=== PATIENT | male | born 1940 | race Caucasian/White ===

== ENCOUNTER → 2017-07-30 08:25 | Outpatient (CLI) | payer MEDICARE, SELFPAY ==
--- NOTE | 2017-07-30 08:29 | MR_ITS ---
MR lumbar spine wo con, MR 3-d myelogram/MRCP HISTORY: Low back pain X years. Last few months PT has bilateral leg pain, RT leg numbness. LT foot numbness, and also states stomach pain. ITS.REASON: LUMBAGO WITH SCIATICA, RIGHT SIDE ORDERING PHYSICIAN: Megan Messina PATIENT AGE: 77 years Comparison: CT 12/23/14, X-RAY 09/12/11 TECHNIQUE: Standard multiplanar multiecho sequences are performed without contrast. 3-D MIP and myelographic images are also rendered and reviewed FINDINGS: There is normal alignment. The spinal cord ends at the T11-T12 level. T12-L1 and L1-L2 are unremarkable. L2-L3: Minimal facet hypertrophic change. L3-L4: Moderate facet and ligamentum flavum hypertrophy causing mild bilateral lateral recess narrowing and minimal foraminal narrowing. There is minimal anterolisthesis of L3 of 2 mm and minimal bulging disc There has been prior fusion posteriorly at L4-L5 and S1 with interpedicular screws and disc spacers at L4-5 and L5-S1 extensive artifact at these levels making interpretation of the L4-L5 and L5 levels unreliable. Prominent hypertrophic changes are present at these levels as demonstrated better by previous CT scan of 12/23/2014 IMPRESSION: 1. Postsurgical changes at L4-5 and L5-S1. Prior posterior fusion with prominent hypertrophic changes and significant artifact. 2. Facet and ligamentum flavum hypertrophy at L3-L4 with mild bilateral lateral recess and foraminal narrowing and minimal bulging disc. 3. No canal stenosis or tissues herniated disc evident Incidental note made of a right or 0.9 cm right renal cyst IMPRESSION:
== END ==
PROVIDERS: Family Provider Internal Medicine Adolescent Medicine; PCP Internal Medicine Adolescent Medicine; Visit Provider Nurse Practitioner Family
DX: M54.41 Lumbago with sciatica, right side (principal)
CPT/HCPCS: 72148; 76376

== ENCOUNTER → 2017-08-12 09:23 | Outpatient (POV) | payer MEDICARE, SELFPAY ==
[2017-08-12 09:36] VITALS: BP 158/92; PULSE 72; RESP 18; O2SAT 98
--- NOTE | 2017-08-12 10:05 | HMH.PMCON ---
Assessment and Plan (1) Postlaminectomy syndrome Current visit: Yes Status: Chronic Category: Medical Code(s): M96.1 - Postlaminectomy syndrome, not elsewhere classified (2) Degenerative disc disease Current visit: Yes Status: Chronic Qualifiers: Spinal region: lumbar Qualified Code(s): M51.36 - Other intervertebral disc degeneration, lumbar region Category: Medical (3) Lumbar radiculopathy Current visit: Yes Status: Chronic Category: Medical Code(s): M54.16 - Radiculopathy, lumbar region - Assessment and plan all Dx Assessment and Plan for all problems:: We will schedule an L4-L5 lumbar epidural steroid injection for the patient. It is not on any anticoagulation therapy. Patient has tried and failed other conservative measures. Patient and I discussed beginning with an epidural steroid injection and reassessing his symptoms afterwards. Patient will also be started on gabapentin 300 mg 1 p.o. 3 times daily. I encouraged patient to take the medication at nighttime for several days and then titrate as tolerated. I will follow-up with the patient after his injection. This note was dictated using voice recognition software and may contain errors or omissions HPI - Data of Consult Consult date: 08/12/17 Requesting Physician: Mohini Lopez APRN Primary Care Provider: Will Resendiz MD Family Provider: Will Resendiz MD - Consult Narrative Reason for consult: neck and back pain History of present illness: Mr. Lopez is a 77 year old male who presents today for consultation in regards to his low back and pain. Patient has had surgery on both his neck and his low back in the past. Patient states that it did help with his pain for some time however it has returned. Patient states that his worst pain is in his low back and down his legs. He rates his pain a 7 out of 10. Patient has tried and failed anti-inflammatories along with gabapentin. Patient has not ever had any injection therapy. Patient has tried and failed chiropractic and physical therapy. Patient and I had a long discussion in regards to injections. We also discussed potentially restarting his gabapentin. Patient did not have any side effects to his gabapentin. Patient was on a low dose and had no relief with it. CC: Mohini Lopez APRN [facility] History I have reviewed the patient's past medical history: Yes Medical History: Denies:: Cancer, Diabetes Mellitus Type 1, Diabetes Mellitus Type 2 - *Social History Smoking Status: Current every day smoker Tobacco Type: smokeless tobacco Alcohol Intake: never Occupational Status: retired Housing: house - Psychiatric History Expresses thoughts of harming self/others: None Suicide Plan Description: No Plan Review of Systems - Review of Systems ROS General: no recent weight change, no fever, no sleep disturbances Respiratory: no cough, no shortness of air, no recurring pulmonary infections Cardiovascular/Peripheral Vascular: No chest pain, No palpitations, no edema, no shortness of breath. Gastrointestinal: no incontinence, normal bowel movements reported Genitourinary: no incontinence Musculoskeletal: Back pain, neck pain, bilateral leg pain, left arm pain Psychiatric: normal mood/ affect Neurological: [denies weakness in extremities], [denies balance issues] Meds Home Medications Medication Instructions Recorded Confirmed Type Aspirin [Aspirin 81mg EC Tab] 81 mg PO DAILY 07/18/17 07/18/17 History Lovastatin 20 mg PO DAILY 07/18/17 07/18/17 History Metoprolol Tartrate [Lopressor 50 mg PO BID 07/18/17 07/18/17 History 50mg tablet] Multivitamin [Multivitamins] 1 each PO DAILY 07/18/17 07/18/17 History Primidone [Mysoline] 250 mg PO DAILY 07/18/17 07/18/17 History Allergies Allergy/AdvReac Type Severity Reaction Status Date / Time morphine Allergy Unknown I-RASH Unverified 02/04/17 15:25 Objective Vital signs:
--- NOTE | 2017-08-12 10:09 | P.CONS_ITS ---
Assessment and Plan (1) Postlaminectomy syndrome Current visit: Yes Status: Chronic Category: Medical Code(s): M96.1 - Postlaminectomy syndrome, not elsewhere classified (2) Degenerative disc disease Current visit: Yes Status: Chronic Qualifiers: Spinal region: lumbar Qualified Code(s): M51.36 - Other intervertebral disc degeneration, lumbar region Category: Medical (3) Lumbar radiculopathy Current visit: Yes Status: Chronic Category: Medical Code(s): M54.16 - Radiculopathy, lumbar region - Assessment and plan all Dx Assessment and Plan for all problems:: We will schedule an L4-L5 lumbar epidural steroid injection for the patient. It is not on any anticoagulation therapy. Patient has tried and failed other conservative measures. Patient and I discussed beginning with an epidural steroid injection and reassessing his symptoms afterwards. Patient will also be started on gabapentin 300 mg 1 p.o. 3 times daily. I encouraged patient to take the medication at nighttime for several days and then titrate as tolerated. I will follow-up with the patient after his injection. This note was dictated using voice recognition software and may contain errors or omissions HPI - Data of Consult Consult date: 08/12/17 Requesting Physician: Mohini Lopez APRN Primary Care Provider: Will Resendiz MD Family Provider: Will Resendiz MD - Consult Narrative Reason for consult: neck and back pain History of present illness: Mr. Lopez is a 77 year old male who presents today for consultation in regards to his low back and pain. Patient has had surgery on both his neck and his low back in the past. Patient states that it did help with his pain for some time however it has returned. Patient states that his worst pain is in his low back and down his legs. He rates his pain a 7 out of 10. Patient has tried and failed anti-inflammatories along with gabapentin. Patient has not ever had any injection therapy. Patient has tried and failed chiropractic and physical therapy. Patient and I had a long discussion in regards to injections. We also discussed potentially restarting his gabapentin. Patient did not have any side effects to his gabapentin. Patient was on a low dose and had no relief with it. CC: Mohini Lopez APRN [facility] History I have reviewed the patient's past medical history: Yes Medical History: Denies:: Cancer, Diabetes Mellitus Type 1, Diabetes Mellitus Type 2 - *Social History Smoking Status: Current every day smoker Tobacco Type: smokeless tobacco Alcohol Intake: never Occupational Status: retired Housing: house - Psychiatric History Expresses thoughts of harming self/others: None Suicide Plan Description: No Plan Review of Systems - Review of Systems ROS General: no recent weight change, no fever, no sleep disturbances Respiratory: no cough, no shortness of air, no recurring pulmonary infections Cardiovascular/Peripheral Vascular: No chest pain, No palpitations, no edema, no shortness of breath. Gastrointestinal: no incontinence, normal bowel movements reported Genitourinary: no incontinence Musculoskeletal: Back pain, neck pain, bilateral leg pain, left arm pain Psychiatric: normal mood/ affect Neurological: [denies weakness in extremities], [denies balance issues] Meds Home Medications Medication Instructions Recorded Confirmed Type Aspirin [Aspirin 81mg EC Tab] 81 mg PO DAILY 07/18/17 07/18/17 History
== END ==
PROVIDERS: Family Provider Internal Medicine Adolescent Medicine; PCP Internal Medicine Adolescent Medicine; Visit Provider Clinical Nurse Specialist Family Health
DX: M51.36 Other intervertebral disc degeneration, lumbar region (principal); M54.16 Radiculopathy, lumbar region; M96.1 Postlaminectomy syndrome, not elsewhere classified
CPT/HCPCS: 99202

== ENCOUNTER → 2017-09-15 13:29 | Outpatient (POV) | payer MEDICARE, SELFPAY ==
[2017-09-15 14:08] VITALS: BP 126/83; PULSE 78; RESP 18; O2SAT 98; BMI 31.3
--- NOTE | 2017-09-15 15:16 | HMH.PAINSOAP ---
[place] Pain Management SOAP Note Subjective:: Patient is a pleasant 77-year-old white male who presents today for follow-up after his lumbar epidural steroid injection. Patient states that he did get a little bit of relief and some benefit with his walking however he still having quite a lot of low back pain. Patient states the pain is worse when he twists. Patient does have an MRI showing facet arthropathy. Patient rates his pain an 8 out of 10. ROS General: no recent weight change, no fever, no sleep disturbances Respiratory: no cough, no shortness of air, no recurring pulmonary infections Cardiovascular/Peripheral Vascular: No chest pain, No palpitations, no edema, no shortness of breath. Gastrointestinal: no incontinence, normal bowel movements reported Genitourinary: no incontinence Musculoskeletal: Back pain Psychiatric: normal mood/ affect Neurological: [denies weakness in extremities], [denies balance issues] Objective:: Physical Exam General: Alert and oriented x3, no acute distress, pleasant and cooperative, [on room air] Lungs: Resps E/U, Symmetrical chest expansion, Eyes: PERRL Musculoskeletal: Flexion and extension of lumbar spine somewhat guarded secondary to pain, deep tendon reflexes normal, strength in upper and lower extremities [5/5], [abnormal gait noted], positive facet loading lumbar spine bilaterally Neurological: speech clear, spool maker equal, no gross sensory deficits Assessment:: Lumbar spondylosis, facet arthropathy, degenerative disc disease of lumbar spine Plan:: We will schedule a L3-L4 L4-L5 L5-S1 facet joint injection/medial branch block. I believe that this would be beneficial for the patient. Patient is not on any anticoagulation therapy. I will follow-up with this patient after his injection. Patient's tried and failed physical therapy, stretching therapies, anti-inflammatories. Patient is still doing home stretching routine. This note was dictated using voice recognition software and may contain errors or omissions
--- NOTE | 2017-09-15 15:20 | P.CONS_ITS ---
[facility] Pain Management SOAP Note Subjective:: Patient is a pleasant 77-year-old white male who presents today for follow-up after his lumbar epidural steroid injection. Patient states that he did get a little bit of relief and some benefit with his walking however he still having quite a lot of low back pain. Patient states the pain is worse when he twists. Patient does have an MRI showing facet arthropathy. Patient rates his pain an 8 out of 10. ROS General: no recent weight change, no fever, no sleep disturbances Respiratory: no cough, no shortness of air, no recurring pulmonary infections Cardiovascular/Peripheral Vascular: No chest pain, No palpitations, no edema, no shortness of breath. Gastrointestinal: no incontinence, normal bowel movements reported Genitourinary: no incontinence Musculoskeletal: Back pain Psychiatric: normal mood/ affect Neurological: [denies weakness in extremities], [denies balance issues] Objective:: Physical Exam General: Alert and oriented x3, no acute distress, pleasant and cooperative, [ on room air] Lungs: Resps E/U, Symmetrical chest expansion, Eyes: PERRL Musculoskeletal: Flexion and extension of lumbar spine somewhat guarded secondary to pain, deep tendon reflexes normal, strength in upper and lower extremities [5/5], [abnormal gait noted], positive facet loading lumbar spine bilaterally Neurological: speech clear, veterinarian laboratory animal care equal, no gross sensory deficits Assessment:: Lumbar spondylosis, facet arthropathy, degenerative disc disease of lumbar spine Plan:: We will schedule a L3-L4 L4-L5 L5-S1 facet joint injection/medial branch block. I believe that this would be beneficial for the patient. Patient is not on any anticoagulation therapy. I will follow-up with this patient after his injection. Patient's tried and failed physical therapy, stretching therapies, anti-inflammatories. Patient is still doing home stretching routine. This note was dictated using voice recognition software and may contain errors or omissions
== END ==
PROVIDERS: Family Provider Internal Medicine Adolescent Medicine; PCP Internal Medicine Adolescent Medicine; Visit Provider Clinical Nurse Specialist Family Health
DX: M47.896 Other spondylosis, lumbar region (principal); M46.86 Other specified inflammatory spondylopathies, lumbar region; M51.36 Other intervertebral disc degeneration, lumbar region
CPT/HCPCS: 99212

== ENCOUNTER → 2017-10-07 10:11 | Outpatient (POV) | payer MEDICARE, SELFPAY ==
[2017-10-07 10:33] VITALS: BP 164/93; PULSE 67; RESP 18; O2SAT 98; BMI 31.3
--- NOTE | 2017-10-07 10:51 | HMH.PAINSOAP ---
[facility] Pain Management SOAP Note Subjective:: Patient is a pleasant 77-year-old white male who presents today for follow-up after medial branch blocks. Patient states he had no relief from his pain. Patient states sitting makes his pain worse. Patient has constant pain at 8 out of 10 level. Patient I discussed neurostimulator and intrathecal pain pump. Patient is uninterested in pursuing either 1 of these options. I do believe an intrathecal pain pump would be beneficial. ROS General: no recent weight change, no fever, no sleep disturbances Respiratory: no cough, no shortness of air, no recurring pulmonary infections Cardiovascular/Peripheral Vascular: No chest pain, No palpitations, no edema, no shortness of breath. Gastrointestinal: no incontinence, normal bowel movements reported Genitourinary: no incontinence Musculoskeletal: Back pain Psychiatric: normal mood/ affect Neurological: [denies weakness in extremities], [denies balance issues] Objective:: Physical Exam General: Alert and oriented x3, no acute distress, pleasant and cooperative, [on room air] Lungs: Resps E/U, Symmetrical chest expansion, Eyes: PERRL Musculoskeletal: Flexion and extension of lumbar spine somewhat guarded secondary to pain, deep tendon reflexes normal, strength in upper and lower extremities [5/5], [abnormal gait noted] Neurological: speech clear, redevelopment manager equal, no gross sensory deficits Assessment:: Degenerative disc disease of lumbar spine with facet arthropathy and lumbar spondylosis, postlaminectomy syndrome Plan:: he is uninterested in pursuing any neuromodulation. Patient would like to be seen by a neurosurgeon. Patient states that he could just have surgery and relieve pressure on the nerve that it is pinching he will be better. I gave the patient information on neuromodulation and if he is interested I believe that this would benefit him in the future. We will send the patient to Dr. Burger. This note was dictated using voice recognition software and may contain errors or omissions
== END ==
PROVIDERS: Family Provider Internal Medicine Adolescent Medicine; PCP Internal Medicine Adolescent Medicine; Visit Provider Clinical Nurse Specialist Family Health
DX: M51.36 Other intervertebral disc degeneration, lumbar region (principal); M54.06 Panniculitis affecting regions of neck and back, lumbar region; M47.896 Other spondylosis, lumbar region; M96.1 Postlaminectomy syndrome, not elsewhere classified
CPT/HCPCS: 99213

== ENCOUNTER → 2017-11-06 13:00 | Outpatient (POV) | payer MEDICARE, SELFPAY ==
--- NOTE | 2017-11-06 14:02 | XR_ITS ---
EXAM: XR lumbar spine min 4V HISTORY: Low back pain, prior surgery ORDERING PHYSICIAN: Ismael Burger PATIENT AGE: 77 years COMPARISON: None FINDINGS: There has been prior fusion at L4, L5, and S1 with disc spacers at L4-5 and L5-S1. Interpedicular screws are present at these levels. Prior laminectomy noted. Standing neutral, flexion, and extension views show no abnormal subluxation in flexion or extension. Minimal hypertrophic changes are present along the posterior superior aspect of the L4 vertebral body. IMPRESSION: Postsurgical changes with no abnormal subluxation in flexion or extension
== END ==
PROVIDERS: PCP Internal Medicine Adolescent Medicine; Visit Provider Neurological Surgery
DX: M54.5 Low back pain (principal)
CPT/HCPCS: 72110

== ENCOUNTER → 2018-07-09 11:28 | Outpatient (CLI) | payer MEDICARE, SELFPAY ==
--- NOTE | 2018-07-09 11:37 | XR_ITS ---
EXAM: XR lumbar spine 6V w bending HISTORY: Low back pain ITS.REASON: RIGHT LUMBAR RADICULOPATHY ORDERING PHYSICIAN: Will Camarillo MD PATIENT AGE: 78 years COMPARISON: 11/06/2017 FINDINGS: There is normal alignment. There is been prior posterior fusion at L4-L5 and S1 with disc spacer device is present and interpedicular screws at these levels with connecting rods. Prior bone grafting at the facet regions laterally. Not significant changed. Flexion and extension views show no abnormal subluxation. There is mild degenerative disc disease at L3-L4. No other significant anomalies are evident. IMPRESSION: Postsurgical change and degenerative disc disease with normal alignment and no abnormal subluxation
--- NOTE | 2018-07-09 11:37 | XR_ITS ---
XR hip RT 2-3V w/pelvis HISTORY: ITS.REASON: RIGHT HIP PAIN ORDERING PHYSICIAN: Will Camarillo MD PATIENT AGE: 78 years COMPARISON: None FINDINGS: Postsurgical changes of the lumbar spine and lumbosacral junction as described in the L-spine report. The right hip has an unremarkable appearance. No fracture or dislocation or significant degenerative change. No lytic or blastic change. IMPRESSION: Negative right hip
== END ==
PROVIDERS: PCP Family Medicine; Visit Provider Family Medicine
DX: M25.551 Pain in right hip (principal); M54.16 Radiculopathy, lumbar region; M48.061 Spinal stenosis, lumbar region without neurogenic claudication
CPT/HCPCS: 72114; 73502

== ENCOUNTER → 2018-07-29 09:06 | Outpatient (CLI) | payer MEDICARE, SELFPAY ==
--- NOTE | 2018-07-29 09:09 | MR_ITS ---
MR lumbar spine wo/w con, MR 3-d myelogram/MRCP HISTORY: Prior HX Lumbar surgery last one was in 99. RT Hip and leg pain. Bilateral leg and numbness but RT leg is worse. ITS.REASON: RIGHT LUMBAR RADICULOPATHY ORDERING PHYSICIAN: Will Camarillo MD PATIENT AGE: 78 years Comparison: 07/30/2017 TECHNIQUE: Standard multiplanar multiecho sequences are performed without and with gadolinium enhancement. 3-D MIP and myelographic images are also rendered and reviewed FINDINGS: There is normal alignment. The spinal cord ends at the T12 level. L1-L2: Unremarkable. L2-L3: Mild degenerative disc disease. L3-L4: Mild degenerative disc disease with minimal bulging disc. There is mild anterolisthesis of L3 on L4 of 3 mm. Unchanged. There is facet and ligamentum flavum hypertrophy with moderate bilateral foraminal narrowing unchanged. There has been prior posterior fusion with interpedicular screws at L4, L5, and S1 with considerable artifact. Disc spacers are present at L4-L5 and L5-S1. There is significant artifact at L4-L5 and S1 precluding adequate evaluation of the underlying structures. No obvious enhancing lesions are evident. IMPRESSION: No change. There is mild degenerative disc disease at L2-L3 and L3-L4 with mild bulging disc at L3-L4 with bilateral foraminal narrowing at L3-L4. Postsurgical changes at L4-L5 and L5-S1 with significant artifact.
[2018-07-29 09:29] LABS: Blood Urea Nitrogen 11 mg/dL (7-18); Creatinine,Serum 0.95 mg/dL (0.70-1.30); Estimated Glomerular Filt Rate 77 ml/min (>60); GFR (African American) 93 ML/MIN (>60)
--- NOTE | 2018-07-29 10:24 | HMH.ITSHM ---
Current Home Medications as stated by this patient Kate Lopez or hospital insurance representative. []METAPROLOL PRIMIDONE LOVASTATIN ASPIRIN
== END ==
PROVIDERS: PCP Family Medicine; Visit Provider Family Medicine
DX: M54.16 Radiculopathy, lumbar region (principal); M48.061 Spinal stenosis, lumbar region without neurogenic claudication; M43.26 Fusion of spine, lumbar region
CPT/HCPCS: 36415; 72158; 76376; 82565; 84520; A9576

== ENCOUNTER → 2018-10-13 10:57 | Outpatient (POV) | payer MEDICARE, SELFPAY ==
[2018-10-13 11:30] VITALS: BP 164/87; PULSE 71; RESP 18; O2SAT 99; BMI 29.5
--- NOTE | 2018-10-13 12:11 | HMH.PAINSOAP ---
[facility] Pain Management SOAP Note Subjective:: Patient is a pleasant 78-year-old white male who presents today for follow-up. We are saw him last year when he received epidurals and medial branch blocks. He did not get any relief from his injections. He went and saw Dr. Torrez in [place] who has determined he is a potential candidate for surgery. Dr. Torrez would like him to fill one more round of epidurals prior to surgery. We will set him up for this. Most of his pain is in his back and bilateral legs he rates his pain a 9 out of 10 today. He is not on any anticoagulation therapy. He does not have an active infection. ROS General: no recent weight change, no fever, no sleep disturbances Respiratory: no cough, no shortness of air, no recurring pulmonary infections Cardiovascular/Peripheral Vascular: No chest pain, No palpitations, no edema, no shortness of breath. Gastrointestinal: no incontinence, normal bowel movements reported Genitourinary: no incontinence Musculoskeletal: Back pain, leg pain Psychiatric: normal mood/ affect, Neurological: [denies weakness in extremities], [denies balance issues] Objective:: Physical Exam General: Alert and oriented x3, no acute distress, pleasant and cooperative, [on room air] Lungs: Resps E/U, Symmetrical chest expansion, Eyes: PERRL Musculoskeletal: Flexion and extension of lumbar spine somewhat guarded secondary to pain, deep tendon reflexes normal, strength in upper and lower extremities [5/5], [abnormal gait noted] Neurological: speech clear, associate professor of art history equal, no gross sensory deficits Assessment:: Degenerative disc disease lumbar spine with lumbar radiculopathy, postlaminectomy syndrome lumbar spine Plan:: Schedule a L4-L5 lumbar epidural steroid injection with patient. If this is unsuccessful patient wants to pursue surgery. He is uninterested in any other forms of pain management from our office. Dr. Multani has reviewed this note and agrees with this plan of care. This note was dictated using voice recognition software and may contain errors or omissions Pain Management Hx Components *Have you ever received a pneumonia vaccine?: Yes *Have you received a flu vaccine this season?: Yes - *Social History *Occupational Status:: other *Travel in the last 8 weeks: None
--- NOTE | 2018-10-13 12:15 | P.CONS_ITS ---
[facility] Pain Management SOAP Note Subjective:: Patient is a pleasant 78-year-old white male who presents today for follow-up. We are saw him last year when he received epidurals and medial branch blocks. He did not get any relief from his injections. He went and saw Dr. Torrez in [place] who has determined he is a potential candidate for surgery. Dr. Torrez would like him to fill one more round of epidurals prior to surgery. We will set him up for this. Most of his pain is in his back and bilateral legs he rates his pain a 9 out of 10 today. He is not on any anticoagulation therapy. He does not have an active infection. ROS General: no recent weight change, no fever, no sleep disturbances Respiratory: no cough, no shortness of air, no recurring pulmonary infections Cardiovascular/Peripheral Vascular: No chest pain, No palpitations, no edema, no shortness of breath. Gastrointestinal: no incontinence, normal bowel movements reported Genitourinary: no incontinence Musculoskeletal: Back pain, leg pain Psychiatric: normal mood/ affect, Neurological: [denies weakness in extremities], [denies balance issues] Objective:: Physical Exam General: Alert and oriented x3, no acute distress, pleasant and cooperative, [on room air] Lungs: Resps E/U, Symmetrical chest expansion, Eyes: PERRL Musculoskeletal: Flexion and extension of lumbar spine somewhat guarded secondary to pain, deep tendon reflexes normal, strength in upper and lower extremities [5/5], [abnormal gait noted] Neurological: speech clear, etch operator semiconductor wafers equal, no gross sensory deficits Assessment:: Degenerative disc disease lumbar spine with lumbar radiculopathy, postlaminectomy syndrome lumbar spine Plan:: Schedule a L4-L5 lumbar epidural steroid injection with patient. If this is unsuccessful patient wants to pursue surgery. He is uninterested in any other forms of pain management from our office. Dr. Multani has reviewed this note and agrees with this plan of care. This note was dictated using voice recognition software and may contain errors or omissions Pain Management Hx Components *Have you ever received a pneumonia vaccine?: Yes *Have you received a flu vaccine this season?: Yes - *Social History *Occupational Status:: other *Travel in the last 8 weeks: None
== END ==
PROVIDERS: PCP Family Medicine; Visit Provider Clinical Nurse Specialist Family Health
DX: M51.16 Intervertebral disc disorders with radiculopathy, lumbar region (principal); M96.1 Postlaminectomy syndrome, not elsewhere classified
CPT/HCPCS: 99212

== ENCOUNTER → 2018-11-17 09:31 | Outpatient (POV) | payer MEDICARE, SELFPAY ==
[2018-11-17 09:56] VITALS: BP 149/83; PULSE 65; RESP 18; O2SAT 98; BMI 24.7
--- NOTE | 2018-11-17 10:10 | P.CONS_ITS ---
[facility] Pain Management SOAP Note Subjective:: Patient is a pleasant 78-year-old white male who we are treating for low back pain with lumbar radiculopathy postlaminectomy syndrome of the spine. Patient's been seen by Dr. Torrez who has talked him about surgery however he wanted him to have epidurals and fill this prior. Patient had an epidural injection and is following up today. He rates his pain 8 out of 10 he states he has had no relief from it. Patient has a follow-up appointment with Dr. Torrez on December 07. ROS General: no recent weight change, no fever, no sleep disturbances Respiratory: no cough, no shortness of air, no recurring pulmonary infections Cardiovascular/Peripheral Vascular: No chest pain, No palpitations, no edema, no shortness of breath. Gastrointestinal: no incontinence, normal bowel movements reported Genitourinary: no incontinence Musculoskeletal: Back pain, leg pain Psychiatric: normal mood/ affect Neurological: [denies weakness in extremities], [denies balance issues] Objective:: Physical Exam General: Alert and oriented x3, no acute distress, pleasant and cooperative, [on room air] Lungs: Resps E/U, Symmetrical chest expansion, Eyes: PERRL Musculoskeletal: Flexion and extension of lumbar spine somewhat guarded secondary to pain, deep tendon reflexes normal, strength in upper and lower extremities [5/5], [abnormal gait noted] Neurological: speech clear, 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 Torrez if needed. Patient's been instructed to call the office if he has any issues. Dr. Multani has reviewed this note and agrees with this plan of care. This note was dictated using voice recognition software and may contain errors or omissions [facility] History I have reviewed the patient's past medical history: Yes Medical History: Reports:: Hyperlipidemia, Hypertension Denies:: Cancer, Diabetes Mellitus Type 1, Diabetes Mellitus Type 2, Internal Pacemaker, MRSA, Seizures *Have you ever received a pneumonia vaccine?: Yes *Have you received a flu vaccine this season?: Yes Other Medical History: Denies: Blood Transfusion Reaction Other Surgeries: No: Pacemaker Amputation: No Fractures: No - *Social History Smoking Status: Light tobacco smoker Tobacco Type: smokeless tobacco Alcohol Intake: never *Occupational Status:: other Housing: house Household Members: spouse *Travel in the last 8 weeks: None Family Hx:: Non-contributory
== END ==
PROVIDERS: PCP Family Medicine; Visit Provider Clinical Nurse Specialist Family Health
DX: M51.16 Intervertebral disc disorders with radiculopathy, lumbar region (principal); M96.1 Postlaminectomy syndrome, not elsewhere classified
CPT/HCPCS: 99212

== ENCOUNTER → 2018-12-16 15:08 | Outpatient (CLI) | payer MEDICARE, SELFPAY ==
[2018-12-16 15:46] LABS: Blood Urea Nitrogen 11 mg/dL (7-18); Creatinine,Serum 0.82 mg/dL (0.70-1.30); Estimated Glomerular Filt Rate 91 ml/min (>60); GFR (African American) 111 ML/MIN (>60)
--- NOTE | 2018-12-16 15:58 | MR_ITS ---
PROCEDURE: MR HEAD/BRAIN WO/W CON CLINICAL INDICATION: ESSENTIAL HYPERTENSION, ATAXIA, FAMILY HX OF STROKE Dizziness, pressure in head, headache COMPARISON: No exams were available for comparison TECHNIQUE: Routine multiplanar multi echo sequences are performed without and with gadolinium enhancement. FINDINGS: No midline shift, mass effect, intracranial hemorrhage, or hydrocephalus. The cerebellopontine angles, cerebellum, and brainstem are unremarkable. There is no evidence of acute infarction. There is normal ponce-white matter differentiation with only minimal periventricular T2 white matter hyperintensity. No enhancing lesions are evident. No pituitary mass. The optic chiasm, corpus callosum, and craniocervical junction have an unremarkable appearance. No mastoid effusion or sinus air-fluid level IMPRESSION: Negative MRI of the brain without and with contrast Dictated by: Rick Ramirez MD 12/17/2018 15:03 Electronically signed by Rick Ramirez MD in [place] 12/17/2018 15:03
== END ==
PROVIDERS: PCP Family Medicine; Visit Provider Family Medicine
DX: R27.0 Ataxia, unspecified (principal); I10 Essential (primary) hypertension; Z82.3 Family history of stroke
CPT/HCPCS: 36415; 70553; 82565; 84520; A9576

== ENCOUNTER 2021-04-02 14:32 | Emergency (ER) | payer MEDICARE, SELFPAY ==
[2021-04-02 14:33] VITALS: BP 171/89; PULSE 75; RESP 18; O2SAT 95; BMI 29.5
--- NOTE | 2021-04-02 15:08 | CT_ITS ---
FINAL REPORT CLINICAL HISTORY: back pain FINDINGS: Axial imaging of the lumbar spine was obtained without contrast. Sagittal and coronal reformatted images were also obtained and reviewed.This study was performed with techniques to keep radiation doses as low as reasonably achievable (ALARA). Individualized dose reduction techniques using automated exposure control or adjustment of mA and/or kV according to the patient's size were employed. There is fusion of L3-S1. There has been laminectomy at L4 and L5. There is no fracture. The vertebral alignment is normal. There are multilevel osteophytes. There is no evidence of significant central canal stenosis. There is a partially imaged posterior right renal mass that was on the abdomen and pelvis CT from 2019 and is favored represent a cyst. T12-L1: No central canal stenosis or neural foraminal narrowing. L1-L2: An annular bulge is present. L2-L3: There is an annular bulge with mild bilateral neural foraminal narrowing. L3-L4: There is fusion at this level. There is facet arthropathy and vertebral osteophytes. There is moderate bilateral neural foraminal narrowing. L4-L5: There is fusion at this level. There is facet arthropathy and vertebral osteophytes. There is mild bilateral neural foraminal narrowing. L5-S1: There is fusion at this level. There is moderate right neural foraminal narrowing. There is spurring of the SI joints. IMPRESSION: Postoperative changes as described. Multilevel degenerative disc disease with areas of neural foraminal narrowing. Reviewed, Interpreted and Dictated by Jose Andrews III, MD Transcribed by Jax Lucas Authenticated by Jose Andrews III, MD on 04/02/2021 04:36:19 PM [facility]
--- NOTE | 2021-04-02 15:46 | PC.NURSE ---
PT GONE TO CT
--- NOTE | 2021-04-02 16:05 | HMH.EDGENADL ---
ED Disposition Clinical Impression: Lumbar radiculopathy Disposition: Home, Self-Care Condition on Discharge: Good Instructions: DI for Lumbar Radiculopathy Additional Instructions: Please follow up with your primary care physician in 2-3 days for further management. Please discuss with your pcp regarding physical therapy. Please take the medication as prescribed for pain. Please return for any concerning symptoms such as urinary retention, fecal incontinence, inability to walk, paralysis or any other worsening pain. 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) Pain Per Pt Transmission Status: Received by [facility] Cyclobenzaprine HCl [Flexeril 10mg tablet] 10 mg PO Q8HP PRN 30 Days #90 tab PRN Reason: Muscle Spasm Transmission Status: Received by [facility] Lidocaine [Lidocaine 5% patch] 1 patch TP DAILY #15 patch Transmission Status: Received by [facility] Referrals: Will Camarillo MD [Primary Care Provider] - - Critical Care Critical Care Time: No Attestation: On 04/02/21, the high probability of a clinically significant, sudden or life threatening deterioration of the following system(s) required my full and direct attention, intervention and personal management. The time I documented below is in addition to time spent performing reported procedures but includes the following listed in this critical care notation. Medical Decision Making - Medical Records Medical records reviewed: Yes: I reviewed the patient's medical records. - Jian Inquiry Pt receiving controlled substance: No Vital Signs: 04/02/21 14:33 04/02/21 18:20 Temperature 97.8 F Pulse Rate 80 Pulse Rate [Left Radial] 75 Respiratory Rate 18 18 Blood Pressure 140/90 Blood Pressure [Right Arm] 171/89 H Blood Pressure Mean [Right Arm] 116 Blood Pressure Source [Right Arm] Automatic Cuff Blood Pressure Position [Right Arm] Sitting 02 Sat by Pulse Oximetry 95 Oxygen Delivery Method Room Air Room Air - Lab Data Lab results reviewed: Yes: I reviewed the patient's lab results. Orders (Tests/Meds): ED MEDICATIONS Discontinued Medications Generic Name Dose Route Start Last Admin Trade Name Freq PRN Reason Stop Dose Admin Hydrocodone Bitart/Acetaminophen 1 tab 04/02/21 15:07 04/02/21 15:30 Apap/Hydrocodone 325mg/7.5mg Tab PO 04/02/21 15:08 1 tab ONCE ONE Administration Dexamethasone 10 mg 04/02/21 16:54 04/02/21 17:07 Dexamethasone 1mg/1ml Intensol 10ml Udc (Er) PO 04/02/21 16:55 Not Given ONCE ONE Dexamethasone Sodium Phosphate 10 mg 04/02/21 17:08 04/02/21 17:16 Dexamethasone 4mg/Ml 1ml Vial IM 04/02/21 17:09 10 mg ONCE ONE Administration Ketorolac Tromethamine 30 mg 04/02/21 16:55 04/02/21 17:15 Ketorolac 30mg/Ml Vial IM 04/02/21 16:56 30 mg ONCE ONE Administration Lidocaine 1 each 04/02/21 15:07 04/02/21 15:30 Lidocaine 5% Transdermal Patch TP 04/02/21 15:08 1 each ONCE ONE Administration Methocarbamol 500 mg 04/02/21 21:00 04/02/21 15:30 Methocarbamol 500mg Tablet PO 05/02/21 20:59 500 mg BID KJ Administration Medical Decision Narrative: Mr. Lopez is a 81 yo male w/ PMh for chronic lower back pain presenting with progressively worsening lower back pain. Patient is ambulatory on arrival. Patietn is afebrile and hemodynamically stable. Physical exam is a well appearing male, non toxic. Spinal exam no midline tenderness, paraspinous pain lower lumbar bilaterally. + straight leg raise test bilaterally. No sensory or motor deficits on exam. Patient denies any urinary retention, fecal incotninence and no saddle anesthesia. Patient has no systemic signs of infection, no N/V, fevers, chills etc. Differentials to consider but not limited to incldue: Muscle spasm, less likely fracture in setting of no trauma, no concern for cauda equina given no red fla
--- NOTE | 2021-04-02 16:50 | PC.NURSE ---
PT AMBULATED WITH ASSISTANCE
[2021-04-02 18:20] VITALS: BP 140/90; PULSE 80; RESP 18; TEMP 36.6; O2SAT 93
== END 2021-04-02 18:21 | disposition home or self-care (01) ==
PROVIDERS: Emergency Provider Student in an Organized Health Care Education/Training Program; PCP Family Medicine
DX: M54.16 Radiculopathy, lumbar region (principal); I10 Essential (primary) hypertension; E78.5 Hyperlipidemia, unspecified; F17.210 Nicotine dependence, cigarettes, uncomplicated
CPT/HCPCS: 72131; 96374; 96375; 99282

== ENCOUNTER → 2021-12-04 12:14 | Outpatient (CLI) | payer MEDICARE, SELFPAY ==
--- NOTE | 2021-12-04 12:17 | CT_ITS ---
FINAL REPORT CLINICAL HISTORY: STAGGERING,DIZZINESS,NEW ONSET HEADACHE FINDINGS: Axial images of the head were obtained without contrast. Coronal reformatted images were also obtained. This study was performed with techniques to keep radiation doses as low as reasonably achievable (ALARA). Individualized dose reduction techniques using automated exposure control or adjustment of mA and/or kV according to the patient's size were employed. There is generalized age appropriate atrophy. There is no evidence of intracranial hemorrhage or mass. The ventricular size is within normal limits. There is no evidence of shift of the midline structures. No skull abnormality is seen on the bone window images. IMPRESSION: No acute intracranial abnormality. Reviewed, Interpreted and Dictated by Jose Andrews III, MD Transcribed by Esther Randolph Authenticated and [facility]
== END ==
PROVIDERS: PCP Nurse Practitioner Family; Visit Provider Nurse Practitioner Family
DX: R42 Dizziness and giddiness (principal); R51.9 Headache, unspecified; R26.0 Ataxic gait
CPT/HCPCS: 70450

== ENCOUNTER 2022-09-22 15:46 | Emergency (ER) | payer MEDICARE, SELFPAY ==
--- NOTE | 2022-09-22 15:52 | XR_ITS ---
PROCEDURE INFORMATION: Exam: XR Lumbosacral Spine Exam date and time: 09/22/2022 3:59 PM Age: 82 years old Clinical indication: Low back pain; Prior surgery; Surgery date: 6+ months; Surgery type: Back surgery; Patient HX: Fell 2 days ago. Falls frequently. ; Additional info: Fall TECHNIQUE: Imaging protocol: Radiologic exam of the lumbosacral spine. Views: 4 or 5 views. Total images: 5 COMPARISON: CT LUMBAR SPINE WO CON 04/02/2021 3:45 PM FINDINGS: Bones/joints: Posterior fusion noted L3-S1 without evidence of complications. The lumbar spine demonstrates mild degenerative changes at multiple levels. Soft tissues: Unremarkable. Gastrointestinal tract: Large amount of stool is present throughout the colon. IMPRESSION: 1. Posterior fusion noted L3-S1 without evidence of complications. 2. The lumbar spine demonstrates mild degenerative changes at multiple levels. 3. Large amount of stool is present throughout the colon.
--- NOTE | 2022-09-22 15:52 | XR_ITS ---
PROCEDURE INFORMATION: Exam: XR Right Ribs with PA Chest Exam date and time: 09/22/2022 3:53 PM Age: 82 years old Clinical indication: Chest wall pain; Right; Patient HX: Patient fell 2 days ago. ; Additional info: Fall TECHNIQUE: Imaging protocol: Radiologic exam of the right ribs with PA chest. Views: 3 views Total images: 4 COMPARISON: CR CXR CHEST(2 VIEWS-NOT PORTABLE) 09/11/2016 1:42 PM FINDINGS: Lungs: Atelectatic changes noted within both lung bases. Pleural spaces: No evidence of pneumothorax. No pleural effusions. Heart/Mediastinum: Unremarkable. No cardiomegaly. Bones/joints: No evidence of acute fracture. The thoracic spine demonstrates mild degenerative changes at multiple levels. IMPRESSION: 1. Atelectatic changes noted within both lung bases. 2. No evidence of acute fracture. 3. No evidence of pneumothorax. 4. No pleural effusions.
[2022-09-22 16:35] VITALS: BP 146/85; PULSE 86; RESP 18; TEMP 36.6; O2SAT 94; BMI 31.3
--- NOTE | 2022-09-22 17:19 | EXP.UTC ---
Discharge Plan Disposition Patient Disposition: Home, Self-Care Condition: Good Prescriptions Prescriptions: New sennosides-docusate sodium 8.6-50 mg capsule 1 tab-cap PO HS PRN (Reason: constipation) Qty: 30 0RF polyethylene glycol 3350 [Miralax] 17 gram/dose powder 17 g PO DAILY PRN (Reason: constipation) Qty: 119 0RF No Action hydrocodone-acetaminophen 1 TAB tablet 1 tab PO Q4HP PRN (Reason: (Oncology Navigator Use Only) Pain Per Pt) Qty: 9 0RF lidocaine 0.05 MG/MG adhesive patch,medicated 1 patch TP DAILY Qty: 15 0RF cyclobenzaprine 10 MG tablet 10 mg PO Q8HP PRN (Reason: Muscle Spasm) 30 Days Qty: 90 0RF aspirin 81 MG tablet,delayed release (DR/EC) 81 mg PO DAILY primidone [Mysoline] 250 MG tablet 250 mg PO DAILY metoprolol tartrate 50 MG tablet 50 mg PO BID lovastatin 20 MG tablet 20 mg PO DAILY multivitamin 1 EACH capsule 1 ea PO DAILY sennosides-docusate sodium 1 EACH tablet 1 each PO HS hydrocortisone acetate 30 MG suppository 30 mg RC DAILY amlodipine 5 MG tablet 5 mg PO DAILY Patient Comments: TAKE ONE TABLET BY MOUTH EVERY DAY Referrals Follow up/Referrals: Angelique Patel APRN [Primary Care Provider] - See instructions Activity Restrictions/Add. Instructions Additional Instructions/Restrictions: Lidocaine patches to area may help with pain use as directed Follow up with your Family Doctor if no improvement or any worsening of symptoms You was constipated today make sure that you are drinking plenty of fluids to help you go Return if needed Straight to ER if any life threatening symptoms I give you a refill on your sennosides-docusate take as directed for constipation and use enema or glycerin suppositories to help relieve constipation Clinical Impressions Clinical Impression: Contusion of rib Qualifiers: Encounter type: initial encounter Laterality: right Qualified Code(s): S20.211A - Contusion of right front wall of thorax, initial encounter Instructions Patient Instructions: DI for Rib Contusion, DI for Low Back Pain Discharge ED Provider: Freda Bernal [facility] General Stated complaint: [id number] fall rib pain back pain Mode of Arrival: Ambulatory Source of Information: Patient Limitations: No Limitations Time Seen by Provider: 09/22/22 17:20 Description of Symptoms (Recalled from Triage Doc. by RN): PATIENT C/O PAIN TO RIGHT RIBS AND LOWER BACK AFTER FALLING IN THE GARAGE FRIDAY HEENT Symptoms (Recalled from RN notes): No Resp Symptoms (Recalled from RN notes): No Skin Symptoms (Recalled from RN notes): No MS Symptoms (Recalled from RN notes): Yes Functional Status (Recalled from RN notes): WNL History of Present Illness Provider Complaint: Patient states that he has been having pain in his right ribs into lower mid back since he slipped and fell in the garage on Friday States that pain is worse with movement or coughing States that he was worried he may have broken a rib or did something to his back Denies SOA Denies productive cough states that he just has pain at times with movement and wanted to get his ribs and back checked no bruising Denies any other injury Related Data Home Medications Medication Instructions Recorded Confirmed aspirin 81 mg tablet,delayed 81 mg PO DAILY Heart failure 07/18/17 04/13/19 release lovastatin 20 mg tablet 20 mg PO DAILY Cholesterol 07/18/17 04/13/19 metoprolol tartrate 50 mg tablet 50 mg PO BID High blood pressure 07/18/17 04/13/19 multivitamin 1 ea PO DAILY Supplement 07/18/17 04/13/19 primidone 250 mg tablet (Mysoline) 250 mg PO DAILY Heart disease 07/18/17 04/13/19 hydrocortisone acetate 30 mg 30 mg RC DAILY itching 03/23/19 04/13/19 rectal suppository sennosides 8.6 mg-docusate sodium 1 each PO HS constipation 03/23/19 04/13/19 50 mg tablet amlodipine 5 mg tablet 5 mg PO DAILY bp 03/30/19 04/13/19 Previous Rx's Medication Instructions Recorded cyclobenzaprine
[2022-09-22 17:32] VITALS: BP 146/85; PULSE 86; RESP 18; TEMP 36.6; O2SAT 94
== END 2022-09-22 17:37 | disposition home or self-care (01) ==
PROVIDERS: Emergency Provider Nurse Practitioner; PCP Nurse Practitioner Family
DX: M54.59 Other low back pain; F17.200 Nicotine dependence, unspecified, uncomplicated; W01.10XA Fall on same level from slipping, tripping and stumbling with subsequent striking against unspecified object, initial encounter; K59.00 Constipation, unspecified; S20.211A Contusion of right front wall of thorax, initial encounter
CPT/HCPCS: 71101; 72110; 99204; 99212; G0463

== ENCOUNTER → 2022-09-24 11:05 | Outpatient (CLI) | payer MEDICARE, SELFPAY ==
[2022-09-24 11:53] LABS: Basophils % 0.3 % (0.1-2.0); Eosinophils # 0.1 K/mm3 (0.0-0.4); Eosinophils % 0.9 % (0.1-12.0); Hemoglobin 14.4 g/dL (14.1-18.0); Lymphocytes # 1.1 K/mm3 (0.7-4.5); Lymphocytes % 14.2 % (10-50); Mean Corpuscular HGB Conc 31.9 g/dL (31.8-35.4); Mean Corpuscular Hemoglobin 28.5 pg (27.0-31.2); Mean Corpuscular Volume 89.4 fl (80-94); Monocytes # 0.5 K/mm3 (0.1-1.0); Monocytes % 6.6 % (1.7-9.3); Neutrophils # 6.3 K/mm3 (1.8-7.8); Neutrophils % 77.9 % (37.0-80.0); Platelet Count 208 K/mm3 (142-424); Red Blood Count 5.03 M/mm3 (4.60-6.20); Red Cell Distribution Width 13.9 % (11.5-17.5)
[2022-09-24 12:23] LABS: Anion Gap 11.9 mEq/L (5-15); Blood Urea Nitrogen 13 mg/dl (9-20); Calcium 8.9 mg/dl (8.4-10.2); Carbon Dioxide 29 mmol/L (22.0-30.0); Chloride 102 mmol/L (98-107); Estimated Glomerular Filt Rate 81 ml/min (>60); GFR (African American) 98 ML/MIN (>60); Glucose 109 mg/dl (74-100); Potassium 4.9 mmoL/L (3.5-5.1); Sodium 138 mmol/L (136-145)
== END ==
PROVIDERS: PCP Nurse Practitioner Family; Visit Provider Surgery
DX: R10.84 Generalized abdominal pain (principal); R10.9 Unspecified abdominal pain
CPT/HCPCS: 36415; 80048; 85025

== ENCOUNTER 2023-06-23 13:37 | Outpatient (CLI) | payer MEDICARE, SELFPAY ==
[2023-06-23 14:42] LABS: Eosinophils # 0.1 K/mm3 (0.0-0.4); Hemoglobin 14.3 g/dL (14.1-18.0); Mean Corpuscular HGB Conc 31.8 g/dL (31.8-35.4); Mean Corpuscular Hemoglobin 29.7 pg (27.0-31.2); Mean Corpuscular Volume 93.3 fl (80-94); Monocytes # 0.5 K/mm3 (0.1-1.0); Red Blood Count 4.83 M/mm3 (4.60-6.20)
[2023-06-23 15:08] LABS: Creatinine,Urine Random 52 mg/dL (Not Estab.)
[2023-06-23 15:15] LABS: Anion Gap 8.9 mEq/L (5-15); Blood Urea Nitrogen 10 mg/dl (9-20); Calcium 9.3 mg/dl (8.4-10.2); Carbon Dioxide 26 mmol/L (22.0-30.0); Chloride 105 mmol/L (98-107); Estimated Glomerular Filt Rate 108 ml/min (>60); GFR (African American) 131 ML/MIN (>60); Glucose 102 mg/dl (74-100); Potassium 3.9 mmoL/L (3.5-5.1); Sodium 136 mmol/L (136-145)
[2023-06-23 15:15] LABS: Microalbumin < 6.000 mg/L (0-16.7)
[2023-06-23 15:23] LABS: NT Pro Brain Natriuretic Pep. 92.3 pg/mL (0-450)
[2023-06-23 15:28] LABS: Free T4 (Free Thyroxine) 0.94 ng/dl (0.78-2.19)
[2023-06-23 15:44] LABS: Thyroid Stimulating Hormone 2.05 uIU/mL (0.465-4.68)
[2023-06-23 16:50] LABS: Basophils % 0.4 % (0.1-2.0); Eosinophils % 0.9 % (0.1-12.0); Hematocrit 45.1 % (42.0-52.0); Lymphocytes # 1.9 K/mm3 (0.7-4.5); Lymphocytes % 25.4 % (10-50); Mean Platelet Volume 9.4 fl (7.4-10.4); Monocytes % 6.5 % (1.7-9.3); Neutrophils # 4.9 K/mm3 (1.8-7.8); Neutrophils % 66.8 % (37.0-80.0); Platelet Count 205 K/mm3 (142-424); White Blood Count 7.3 K/mm3 (4.8-10.8)
== END 2023-06-23 23:59 | disposition home or self-care (01) ==
LOC: LAB 14:10
PROVIDERS: PCP Nurse Practitioner Family; Visit Provider Internal Medicine
DX: I50.89 Other heart failure (principal); R01.1 Cardiac murmur, unspecified; R07.89 Other chest pain; R06.09 Other forms of dyspnea; R60.9 Edema, unspecified; R53.83 Other fatigue; R94.31 Abnormal electrocardiogram [ECG] [EKG]; K21.9 Gastro-esophageal reflux disease without esophagitis; Z79.899 Other long term (current) drug therapy
CPT/HCPCS: 36415; 80048; 82043; 82570; 83880; 84156; 84439; 84443; 85025

== ENCOUNTER 2023-07-03 11:58 | Outpatient (CLI) | payer MEDICARE, SELFPAY ==
--- NOTE | 2023-07-03 12:05 | NM_ITS ---
APPROVED REPORT Exam: Nuclear Stress Test Indication: chest pain..soa Patient Location: Outpatient Stress Tech: Janessa Chavira [place] Tech:Chelsey Ramires LAURIEPaige RT(R)(N) Ht: 5 ft 9 in Wt: 212 lbs HR: 62 bpm BP: 145/72 mmHg BSA: 2.12 m2 Rhythm: NSR TID: 1.22 BMI: 31.3 History: chest pain..soa Procedure: Patient received 0.4 mg of intravenous Lexiscan, resting heart rate 62 bpm, resting blood pressure 145/72 mmHg, with Lexiscan maximum heart rate achieved was 85 bpm which is 85 % of the maximum predicted heart rate and blood pressure was 145/72 mmHg. With Lexiscan, patient denied any complaint of chest pain. The patient was not able to lay on his abdomen for prone images Cardiac Stress and Resting SPECT Images: Cardiac Stress and Resting SPECT images were obtained using technetium 99m Myoview 31.1 mCi stress and 10.66 mCi at rest. The patient could not lie on his abdomen. Therefore, prone stress imaging could not be performed. This may affect the diagnostic interpretation of the study findings. Resting and stress imaging in supine positions demonstrate a medium sized, moderate, predominantly reversible perfusion defect in the basal to mid inferior LV wall. There is also increase in transient ischemic dilatation ratio (TID 1.22), suggestive of possible multivessel disease or balanced ischemia. Gated imaging demonstrates low normal global LV systolic function. There is mild hypokinesis of the basal inferior LV wall. LVEF is calculated at 52%. Conclusion: Medium sized, moderate, predominantly reversible perfusion defect in the basal to mid inferior LV wall. There is also increase in transient ischemic dilatation ratio (TID 1.22), suggestive of possible multivessel disease or balanced ischemia. Gated imaging demonstrates low normal global LV systolic function. There is mild hypokinesis of the basal inferior LV wall. LVEF is calculated at 52%. Electronically signed by : Nhung Perry MD 07/04/2023 23:10:15
--- NOTE | 2023-07-03 12:45 | CA_ITS ---
APPROVED REPORT Exam: Pharmacologic Technologist: Janessa Toribio, Ht: 5 ft 9 in Wt: 213 lbs BSA: 2.12 m2 HR: 60 bpm BP: 145/72 mmHg Rhythm: NSR Medical History Medications: Amlodipine,,,,, Aspirin,,,,, Lovastatin,,,,, Metoprolol Tartrate,,,,, HCTZ,,,,, PriMIDONE,,,,, Stress Test Details Test: LEXISCAN Reason for pharmacologic stress test: physical limitation. HR Resting HR: 62 bpm Max Heart Rate (APMHR): 139 bpm Max HR Achieved: 85 bpm Target HR (85% APMHR): 118 bpm % of APMHR: 61 Recovery HR: 75 bpm BP Resting BP: 145/72 mmHg Max BP: 145/72 mmHg Recovery BP: 142.0/74.0 mmHg ECG Resting ECG: Sinus eli, low voltage QRS, T-wave changes in inferior leads Stress ECG: No significant ST changes Arrhythmia: PACs, PVCs Clinical Exercise duration: 04:00 min Highest Stage Achieved: Stress ECG Conclusion Symptoms: mild chest discomfort. Malaise, Headache Arrhythmias/Ectopy: occasional PACs, PVCs ST-T Changes: No significant ST changes. Conclusion: Unremarkable Lexiscan stress. Myoview images reported separately. Test Summary REST . . . . . . . Resting REST 03:44 . . 62 . 145/ 72 . . Stage 1 01:00 . . 68 . . . . Stage 2 01:00 . . 82 . 126/ 64 . . Stage 3 01:00 . . 78 . 134/ 67 . . Stage 4 01:00 . . 79 . 125/ 71 . Stop exercise at 04:00 RECOVERY 01:00 . . 81 . . . . RECOVERY 02:00 . . 75 . 134/ 78 . . RECOVERY 03:00 . . 74 . 142/ 74 . . RECOVERY 03:17 . . 75 . 142/ 74 . . Electronically signed by : Nhung Perry MD 07/04/2023 23:07:27
--- NOTE | 2023-07-03 13:30 | CA_ITS ---
APPROVED REPORT EXAM: Comprehensive 2D, Doppler, and color-flow Echocardiogram Enterprise Application Developer: Sylvia Delacruz RVT Ht: 5 ft 9 in Wt: 213lbs BSA: 2.12 BP: 151/75 mmHg Indications: CP,SOA,ABN EKG,MURMUR,SMOKER,EDEMA TDS-PT BODY HABITUS 2D Dimensions LA Volume 60.20 mL LA Volume Index 28.40 mL/m2 (M/F) 16-34 M-Mode Dimensions RVDd 2.40 cm (0.9-2.6) LA Diam 3.74 cm (1.9-4.0) LVDd 5.92 cm (3.5-5.7) LVDs 3.62 cm (3.5-5.7) IVSd 0.66 cm (0.6-1.1) PWd 0.66 cm (0.6-1.1) EF (Teich) 68.40% FS 38.90% EDV (Teich) 174.60 mL TAPSE 2.42 (<1.7) ESV (Teich) 55.20 mL LV Diastology E Decel Time 253 (160-240 msec) E/A Ratio 0.5 Aortic Valve VITALIY Index 1.26 cm2/m2 AoV Peak Kleber. 120.0 (50-130 cm/s) AO Peak GR. 5.80 mmHg AO Mean GR. 3.40 (<5 mmHg) AO VTI 22.3 (18-25 cm) VITALIY (VTI) 2.73 (2.5-4.5 cm2) Mitral Valve MV E Max Kleber. 48.0 (40-130 cm/s) MV A Velocity 91.0 (40-130 cm/s) E/A Ratio 0.53 MV PHT 74.0 ms Pulmonary Valve PV Peak Velocity 101.0 (50-150 cm/s) Tricuspid Valve TR P. Velocity 247.00 cm/s RAP Estimate 10.00 mmHg RVSP 34.50 mmHg Left Ventricle The left ventricle is normal size. The left ventricular systolic function is normal. The left ventricular ejection fraction is within the normal range. There is increased LV wall thickness. There is normal LV segmental wall motion. Diastolic function is indeterminate. LVEF is 60%. Right Ventricle The right ventricle is mildly dilated. The right ventricular systolic function is normal. Atria The left atrium is mildly dilated. The right atrium is mildly dilated. There is no Doppler evidence of interatrial shunt. Aortic Valve The aortic valve is mildly thickened. There is no aortic valvular stenosis. Trace aortic regurgitation. Mitral Valve The mitral leaflets are mildly thickened. No evidence of mitral valve stenosis. Trace mitral regurgitation. Tricuspid Valve The tricuspid valve leaflets are thin and pliable. Trace tricuspid regurgitation. There is insufficient TR jet to estimate RVSP. Pulmonic Valve The pulmonary valve is normal in structure. Mild pulmonic regurgitation. Great Vessels The aortic root is normal in size. The ascending aorta is not well-visualized. The IVC is not well-visualized. Pericardium There is no pericardial effusion. Other Information Study Quality: Fair Conclusion Normal biventricular systolic function. Mild RV dilation. Mild biatrial dilation. Mild PI. Electronically signed by : Nhung Perry MD 07/05/2023 22:06:59
[2023-07-03] MEDS: REGADENOSON 0.4MG/5ML SYRINGE 0.400000000000000022 MG IV (14:10)
[2023-07-03] MEDS: SODIUM CHLORIDE 0.9% 10ML SYR (RAD ONLY) 10 ML IV ×2 (14:11)
[2023-07-03] MEDS: ISOTOPE MYOVIEW (PER STUDY) 1 DOSE IV (14:11)
== END 2023-07-03 23:59 | disposition home or self-care (01) ==
LOC: RAD 12:00
PROVIDERS: PCP Nurse Practitioner Family; Visit Provider Internal Medicine
DX: R07.89 Other chest pain (principal); R01.1 Cardiac murmur, unspecified; R06.09 Other forms of dyspnea; R60.9 Edema, unspecified; R53.83 Other fatigue; R94.31 Abnormal electrocardiogram [ECG] [EKG]; R00.2 Palpitations; Z72.0 Tobacco use
CPT/HCPCS: 78452; 93017; 93018; 93270; 93306; A9502; J2785

== ENCOUNTER 2023-07-18 08:29 | Day surgery (SDC) | payer MEDICARE, SELFPAY ==
[2023-07-18] VITALS (13 sets, daily range): BP systolic 119–178; BP diastolic 63–95; PULSE 54–92; RESP 16–20; TEMP 36.6; O2SAT 90–95; BMI 31.1
--- NOTE | 2023-07-18 07:13 | IR_ITS ---
APPROVED REPORT Patient Location: Outpatient PROCEDURES Left heart catheterization Left ventriculogram Selective coronary angiogram INDICATION Abnormal Myoview, Angina pectoris Informed consent was obtained prior to the procedure. COMPLICATIONS NONE Estimated Blood Loss: LESS THAN 10 ML TECHNIQUE One percent lidocaine used to anesthetize the right anterior aspect of the wrist. The right radial artery was accessed via the Seldinger technique. A 6 Romanian sheath was placed in the right radial artery. 2.5 mg of Verapamil, 800 mcg of nitroglycerin, 1mg Lidocaine and 5000 U Heparin were given through the arterial sheath. The papa catheter was also used to perform left heart catheterization, left ventriculogram and selective coronary angiogram. At the end of the procedure the sheath was removed good hemostasis was achieved using Traclet band, patient was transferred to the postop holding area in stable condition. ANGIOGRAPHIC RESULTS The left main artery Normal The left anterior descending artery Normal The circumflex artery Normal The right coronary artery Large dominant normal The FERGUSON ventriculogram reveals Normal 65% The left ventricular end-diastolic pressure 15 mmHg IMPRESSION Normal coronary arteries Normal ejection fraction Normal LVEDP PLAN 1. Evaluation of noncardiac symptoms Electronically signed by : Gian Lainez MD 07/18/2023 11:02:30
[2023-07-18 09:04] LABS: Basophils # 0.1 K/mm3 (0-0.2); Basophils % 0.7 % (0.1-2.0); Eosinophils # 0.1 K/mm3 (0.0-0.4); Eosinophils % 1.1 % (0.1-12.0); Hematocrit 45.8 % (42.0-52.0); Hemoglobin 14.8 g/dL (14.1-18.0); Lymphocytes # 1.9 K/mm3 (0.7-4.5); Mean Corpuscular HGB Conc 32.3 g/dL (31.8-35.4); Mean Corpuscular Hemoglobin 29.8 pg (27.0-31.2); Mean Corpuscular Volume 92.2 fl (80-94); Mean Platelet Volume 8.9 fl (7.4-10.4); Monocytes # 0.5 K/mm3 (0.1-1.0); Monocytes % 6.9 % (1.7-9.3); Neutrophils # 4.4 K/mm3 (1.8-7.8); Neutrophils % 63.5 % (37.0-80.0); Platelet Count 200 K/mm3 (142-424); Red Blood Count 4.97 M/mm3 (4.60-6.20); Red Cell Distribution Width 13.9 % (11.5-17.5); White Blood Count 6.9 K/mm3 (4.8-10.8)
[2023-07-18 09:14] LABS: Chloride 100 mmol/L (98-107); Sodium 136 mmol/L (136-145)
[2023-07-18 09:15] LABS: Potassium 3.9 mmoL/L (3.5-5.1)
[2023-07-18 09:17] LABS: Blood Urea Nitrogen 7 mg/dl (9-20); Creatinine Clearance Estimated 78 mL/min (50-200); Estimated Glomerular Filt Rate 93 ml/min (>60); GFR (African American) 112 ML/MIN (>60)
[2023-07-18 09:18] LABS: Anion Gap 10.9 mEq/L (5-15); Calcium 9.1 mg/dl (8.4-10.2); Carbon Dioxide 29 mmol/L (22.0-30.0); Glucose 113 mg/dl (74-100)
[2023-07-18] MEDS: VERAPAMIL 2.5MG/ML 2ML VIAL 2.5 MG IV (10:39)
[2023-07-18] MEDS: HEPARIN 1,000 UNITS/500ML NS (CATH LAB) 3000 UNIT IV (10:39)
[2023-07-18] MEDS: HEPARIN 1,000 UNITS/ML 10ML VIAL (CATH LAB) 10000 UNIT IV (10:39)
[2023-07-18] MEDS: 0.9 % SODIUM CHLORIDE 500 ML 25 ML IV (10:39)
[2023-07-18] MEDS: diphenhydrAMINE 50MG/ML VIAL 50 MG IV (10:39)
[2023-07-18] MEDS: LIDOCAINE 1% 10ML MDV 20 ML IJ (10:39)
[2023-07-18] MEDS: NITROGLYCERIN 800MCG/8ML SYR (CATH LAB) 800 MCG IA (10:40)
[2023-07-18] MEDS: FENTANYL 100MCG/2ML VIAL 50 MCG IV (10:59)
[2023-07-18] MEDS: MIDAZOLAM HCL 1MG/1ML 5ML VIAL 1 MG IV (11:00)
[2023-07-18] MEDS: IOPAMIDOL-370 (76%);100ML BOTTLE 50 ML IV (12:50)
== END 2023-07-18 13:48 | disposition home or self-care (01) ==
PROVIDERS: PCP Nurse Practitioner Family; Visit Provider Internal Medicine
DX: R93.1 Abnormal findings on diagnostic imaging of heart and coronary circulation (principal); R01.1 Cardiac murmur, unspecified; R07.89 Other chest pain; R06.09 Other forms of dyspnea; R60.9 Edema, unspecified; R53.83 Other fatigue; R94.31 Abnormal electrocardiogram [ECG] [EKG]; Z79.899 Other long term (current) drug therapy; I20.89 Other forms of angina pectoris; F17.290 Nicotine dependence, other tobacco product, uncomplicated; I10 Essential (primary) hypertension
CPT/HCPCS: 80048; 85025; 93458; 99152; C1769; J1644; Q9967

== ENCOUNTER 2023-08-01 09:49 | Outpatient (CLI) | payer MEDICARE, SELFPAY ==
--- NOTE | 2023-08-01 09:49 | CA_ITS ---
FINAL REPORT CLINICAL HISTORY: EDEMA OF BILATERAL LOWER EXTREMITES,HX DVT,PT ON ASA COMPARISON: None FINDINGS: Color Doppler, duplex Doppler and compression sonography of the bilateral lower extremities was performed. There is no evidence of deep venous thrombosis from the level of the groin to the calf. The deep veins are patent and compressible. IMPRESSION: No evidence of deep venous thrombosis bilateral lower extremities. Reviewed, Interpreted and Dictated by Jose Andrews III, MD Transcribed by Rona Hilliard Authenticated and [facility]
== END 2023-08-01 23:59 | disposition home or self-care (01) ==
LOC: RT 09:49
PROVIDERS: PCP Nurse Practitioner Family; Visit Provider Physician Assistant
DX: R60.0 Localized edema (principal)
CPT/HCPCS: 93970